=== PATIENT | male | born 2005 | race Hispanic/Latino ===

== ENCOUNTER 2024-06-30 05:16 | Emergency (ER) | payer BC, OTHER ==
[2024-06-30] MEDS ORDERED: Lidocaine 1% w/Epinephrine 1:100K 20 ML VIAL ONE (05:33)
== END 2024-06-30 06:12 | disposition home or self-care (01) ==
LOC: ERS 05:16
DX: S31.21XA Laceration without foreign body of penis, initial encounter (principal); F17.290 Nicotine dependence, other tobacco product, uncomplicated; X58.XXXA Exposure to other specified factors, initial encounter
CPT/HCPCS: 12001; 99282